=== PATIENT | male | born 1945 | race Caucasian/White ===

== ENCOUNTER → 2020-06-22 | Outpatient (CLI) | payer MEDICARE | LOC: LAB 11:08 → LAB SHORT 11:08 | DX: L08.9 Local infection of the skin and subcutaneous tissue, unspecified (principal); L57.0 Actinic keratosis; D36.12 Benign neoplasm of peripheral nerves and autonomic nervous system, upper limb, including shoulder; L81.4 Other melanin hyperpigmentation | CPT/HCPCS: 87070; 87205 ==